=== PATIENT | female | born 1945 | race Caucasian/White ===

== ENCOUNTER → 2016-09-08 | Outpatient (CLI) | payer MEDICARE, BC ==
--- NOTE | 2016-09-09 13:39 | MM ---
Reason for exam: screening (asymptomatic). Last mammogram was performed 2 years and 4 months ago. History: Patient is postmenopausal. Family history of breast cancer in maternal aunt. Stereotactic core biopsy of the right breast, June 19, 2000. Core biopsy of the right breast. Took hormonal contraceptives for 20 years. Physical Findings: A clinical breast exam by your physician is recommended on an annual basis and results should be correlated with mammographic findings. MG 3D Screening Mammo W/Cad Bilateral CC and MLO view(s) were taken. Prior study comparison: May 17, 2014, bilateral MG screening mammo w CAD. March 22, 2013, bilateral digital screening mammo w/CAD. January 09, 2012, bilateral digital screening mammo w/CAD. May 15, 2010, bilateral digital screening mammogram. There are scattered fibroglandular densities. Previous mammotome biopsy within the right breast. No significant changes when compared with prior studies. ASSESSMENT: Negative, BI-RAD 1 RECOMMENDATION: Routine screening mammogram of both breasts in 1 year.
== END | disposition home or self-care (01) ==
LOC: RADMAMWWP 08:21
PROVIDERS: ATTEND Internal Medicine Geriatric Medicine
DX: Z12.31 Encounter for screening mammogram for malignant neoplasm of breast (principal)
CPT/HCPCS: 77063; G0202

== ENCOUNTER → 2016-10-28 | Outpatient (CLI) | payer MEDICARE, BC ==
[~2016-10-28] MED LIST: ATROPINE SULFATE 0.1 MG/ML 10ML SYRINGE ONE; DOBUTamine DRIP for NUC MED 500 MG in DEXTROSE/WATER 1 250ML.BAG IV ONE
--- NOTE | 2016-10-28 10:34 | XR ---
EXAMINATION TYPE: XR chest 2V DATE OF EXAM: 10/28/2016 10:30 AM COMPARISON: NONE TECHNIQUE: PA and lateral views submitted. HISTORY: Shortness of breath FINDINGS: The lungs are clear and there is no pneumothorax, pleural effusion, or focal pneumonia. There is a h iatal hernia. No overt failure. IMPRESSION: 1. No acute process.
--- NOTE | 2016-10-28 12:20 | ECHOS ---
DATE OF SERVICE: 10/28/2016 AGE: 70Y SEX: F HT: 63" WT: 215 lbs. Protocol Conrado: Others: Dobutamine Stress Echo Stage: 4 Dur. of Exercise: 11:00 *Heart Rate Blood Pressure *Rest: 74 Rest: 123/59 * *Max. Achieved: 142 Maximum BP: 150/46 85% PMHR: 128 100% PMHR: 150 *METS: - INDICATIONS: Chest pain, shortness of breath. MEDICATIONS: Meloxicam, Norvasc, iron, calcium fish oil, Lasix. A dobutamine stress echocardiographic study was performed. Peak heart rate of 142 was achieved. Maximum blood pressure of 150/46 mmHg was noted. EKG shows normal sinus rhythm with normal NV interval and QRS duration and normal ST-T waves. During dobutamine infusion about [address] segment depression was noted. Complained of symptoms of shortness of breath during dobutamine infusion. The baseline echocardiographic images reveal a normal left ventricular chamber size with evidence of left ventricular hypertrophy and normal left ventricular systolic function. There is a normal increase in the wall thickness and contractility noted without any wall motion abnormality. FINAL IMPRESSION: 1. This dobutamine stress echocardiographic study does not show any wall motion abnormality to suggest stress-induced ischemia. 2. EKG portion of the stress test shows ST segment depression which could be secondary to left ventricular hypertrophy and/on ischemia. Clinical correlation is suggested.
== END | disposition home or self-care (01) ==
LOC: RADNMMAIN 08:47
PROVIDERS: ATTEND Internal Medicine Geriatric Medicine
DX: R07.9 Chest pain, unspecified (principal); R06.02 Shortness of breath
CPT/HCPCS: 93017; 93350; 71020; J1250

== ENCOUNTER 2016-12-26 07:00 | Day surgery (SDC) | payer MEDICARE, BC ==
[2016-12-23 15:56] VITALS: BMI 27.5
[~2016-12-26 07:00] MED LIST changes: -ATROPINE SULFATE 0.1 MG/ML 10ML SYRINGE ONE; -DOBUTamine DRIP for NUC MED 500 MG in DEXTROSE/WATER 1 250ML.BAG IV ONE; +LACTATED RINGERS 1,000 ML IV SCH
[2016-12-26 07:12] VITALS: TEMP 98.1
[2016-12-26] MEDS ORDERED: LACTATED RINGERS 1,000 ML IV ONE (07:12)
[2016-12-26] MEDS ORDERED: LIDOCAINE 1% 20 ML VIAL (10MG/ML) FOR IV START INTRADERMA ONE (07:13)
[2016-12-26 07:22] LABS: Glucose,Whole Blood 112 mg/dL (75-99)
[2016-12-26] MEDS ORDERED: PROPOFOL 10 MG/ML 20 ML VIAL IV ONE (07:36)
--- NOTE | 2016-12-26 07:59 | P.PCN ---
Date of Procedure: 12/26/16 Preoperative Diagnosis: Postoperative Diagnosis: Procedure(s) Performed: BRIEF HISTORY: Patient is a 71-year-old pleasant white female, scheduled for an elective colonoscopy as a part of evaluation of iron deficiency anemia. She denies any GI symptoms. The patient has rectal bleeding. PROCEDURE PERFORMED: Colonoscopy. PREOPERATIVE DIAGNOSIS: Iron deficiency anemia. IV sedation per Anesthesia. PROCEDURE: After informed consent was obtained, the patient, was brought into the endoscopy unit. IV sedation was administered by Anesthesia under continuous monitoring. Digital rectal examination was normal. Initially the Olympus CF- 160 flexible video colonoscope was then inserted in the rectum, gradually advanced into the cecum without any difficulty. Careful examination was performed as the scope was gradually being withdrawn. Ileocecal valve and the appendiceal orifice were visualized and appeared normal. Prep was excellent. Mucosa of the cecum, ascending colon, transverse colon, descending colon, sigmoid colon, and rectum appeared normal. Retroflexion was performed in the rectum and no lesions were seen. The patient tolerated the procedure well. IMPRESSION: Normal-appearing colon from rectum to cecum with no evidence of colorectal neoplasia. RECOMMENDATIONS: Findings of this examination were discussed with the patient as well as a family. She can have a repeat screening colonoscopy in 10. Implants: Indications for Procedure: Operative Findings: Description of Procedure:
[2016-12-26 08:25] VITALS: BP 137/61; PULSE 64; RESP 18
== END 2016-12-26 08:43 | disposition home or self-care (01) ==
LOC: ORWHC2ENDO 07:00
PROVIDERS: ATTEND Internal Medicine Gastroenterology
DX: I10 Essential (primary) hypertension (principal); E11.9 Type 2 diabetes mellitus without complications; Z79.84 Long term (current) use of oral hypoglycemic drugs; Z79.899 Other long term (current) drug therapy; Z88.5 Allergy status to narcotic agent
CPT/HCPCS: 45378; J2704

== ENCOUNTER → 2017-10-12 | Outpatient (CLI) | payer MEDICARE, BC ==
--- NOTE | 2017-10-13 09:07 | MM ---
Reason for exam: screening (asymptomatic). Last mammogram was performed 1 year and 1 month ago. History: Patient is postmenopausal. Family history of breast cancer in maternal aunt. Stereotactic core biopsy of the right breast, June 19, 2000. Core biopsy of the right breast. Took hormonal contraceptives for 20 years. Physical Findings: A clinical breast exam by your physician is recommended on an annual basis and results should be correlated with mammographic findings. MG 3D Screening Mammo W/Cad Bilateral CC and MLO view(s) were taken. Prior study comparison: September 08, 2016, bilateral MG 3d screening mammo w/cad. May 17, 2014, bilateral MG screening mammo w CAD. The breast tissue is heterogeneously dense. This may lower the sensitivity of mammography. Stable benign calcifications. There is chronic nodularity bilaterally. There is no dominant lesion. No significant changes when compared with prior studies. ASSESSMENT: Benign, BI-RAD 2 RECOMMENDATION: Routine screening mammogram of both breasts in 1 year.
--- NOTE | 2017-10-13 16:31 | BD ---
EXAMINATION TYPE: MG DEXA axial skeleton. DATE OF EXAM: 10/12/2017 COMPARISON: 07.19.2014 CLINICAL HISTORY: 71 YR OLD FEMALE.....ICD-10 CODE: M81.0 OSTEOPOROSIS Height: 61 Weight: 188 FRAX RISK QUESTIONS: Alcohol (3 or more units per day): NO Family History (Parent hip fracture): NO Glucocorticoids (More than 3mos): NO (Ex: prednisone, prednisolone, methylprednisolone, dexamethasone, and hydrocortisone). History of Fracture in Adulthood: NO Secondary Osteoporosis: NO 1. Type 1 Diabetes: NO 2. Hyperthyroidism: NO 3. Menopause before 45: NO 4. Malnutrition: NO 5. Chronic liver disease: NO Rheumatoid Arthritis: NO Current Tobacco Use: NO RISK FACTORS HISTORY OF: Surgery to RT HIP.... When: 2014 Family History of Osteoporosis: UNKNOWN Active: NO....CANNOT WALK WITHOUT HELP/AID Diet low in dairy products/other sources of calcium: NO Postmenopausal woman: YES, TOTAL HYSTERECTOMY AT AGE 63 Take estrogen and/or progesterone medications: TOOK BCP IN PAST FOR 20 YRS Lost more than 2 inches in height since high school: YES Frequent falls: PT UNSTEADY Hyperparathyroidism: NO Adrenal Insufficiency: NO MEDICATIONS: Additional Medications: MELOXICAM, FOR INFLAMMATION, BP MEDS,DIABETIC II,CALCIUM WITH D Additional History: THR AND TKR, OSTEOARTHRITIS, HYPERTENSION, DIABETIC EXAM MEASUREMENTS: Bone mineral densitometry was performed using the [employer] System. Bone mineral density as measured about the Lumbar spine is: ----- L1-L4(G/cm2): 1.255 T Score Values are as follows: ----- L1: -0.1 ----- L2: -0.2 ----- L3: 1.1 ----- L4: 1.2 ----- L1-L4: 0.6 Bone mineral density has: Increased 6.5% since study of: 07.19.2014 Bone mineral density about the L hip (g/cm2): 1.021 T Score values are as follows: -----L Neck: -0.8 -----L Total: 0.1 Bone mineral density has: Decreased -5.8% since study of: 07.19.2014 FRAX%S: THERE IS A 8.0% CHANCE OF A MAJOR OSTEOPOROTIC FX AND A 0.8% FOR A HIP FX.....PROBABILITY OF FX IN 10 YRS TIME IMPRESSION: Normal (Values between +1 and -1 indicate normal bone mass). Consider repeating this study in 5 year s or sooner if there is some new clinical indication. NOTE: T-SCORE=SD OF THE YOUNG ADULT MEAN.
== END | disposition home or self-care (01) ==
LOC: RADMAMWWP 07:48
PROVIDERS: ATTEND Internal Medicine Geriatric Medicine
DX: Z12.31 Encounter for screening mammogram for malignant neoplasm of breast (principal); M81.0 Age-related osteoporosis without current pathological fracture
CPT/HCPCS: 77063; 77067; 77080

== ENCOUNTER 2018-02-25 05:48 | Day surgery (SDC) | payer MEDICARE, BC ==
--- NOTE | 2018-02-22 09:24 | HP ---
HISTORY AND PHYSICAL This is a 72-year-old female who presents with a history of a perineal bulge that has been increasing over the past several years. She also reports urinary incontinence. She was evaluated by Dr. Hurst and his opinion was that patient was not in need of a sling procedure. She is; however, requesting repair of the enlarging cystocele. She denies vaginal bleeding or dyspareunia. There are no other bladder or rectal issues. PAST MEDICAL HISTORY: Significant for type 2 diabetes, essential hypertension, osteoarthritis, and rheumatoid arthritis. PAST SURGICAL HISTORY: Significant for rectocele repair 2008, AMAYA BSO in the past for benign disease. She has a history of hip replacement, knee surgery, tubal ligation, tonsillectomy and adenoidectomy, and appendectomy. FAMILY HISTORY: Significant for hepatitis in the patient's mother, myocardial infarction of the patient's father. ALLERGIES: Include codeine to which reports an upset stomach and Rocephin to which reports a rash. CURRENT MEDICATIONS: Calcium with vitamin D daily, fish oil daily, hydrochlorothiazide 25 mg daily, meloxicam 7.5 mg twice daily, multivitamin daily, Norvasc 50 mg daily. SOCIAL HISTORY: Patient is retired from [employer], she has never been a smoker. She is . She denies alcohol or drug use. REVIEW OF SYSTEMS: Is otherwise negative except as found in the HPI. EXAM: This is a pleasant white female who is 5 foot 4 inches, 178 pounds, BMI 30, blood pressure 132/70, patient is afebrile. HEENT examination reveals no thyromegaly, no cervical lymphadenopathy. CHEST: Clear to auscultation in all brooks anteriorly and posteriorly. ABDOMEN: Soft, moderately obese, no organosplenomegaly, no tenderness, active bowel sounds are noted. There is no CVA tenderness noted. Breasts are bilaterally symmetric to inspection with no skin dimpling, nipple discharge, axillary adenopathy or discernible lesions or masses. Extremities reveal no edema, there are good peripheral pulses noted throughout. On pelvic exam, external genitalia is reasonably well estrogenized. There is a grade 2 6-3 cystocele noted, otherwise good vaginal vault suspension and no rectocele. Rectal exam reveals fit capital IP negative stool, good sphincter tone, no hemorrhoids. Neurologic and psychiatric status is normal, patient is grossly oriented to person, place, and time, normal mood and appropriate affect. IMPRESSION: Increasingly symptomatic grade 3 cystocele, patient requesting surgical repair. PLAN: We will proceed with cystocele repair at [facility]. The risks of surgery have been reviewed in detail including the risk of bleeding, infection, perforation or damage to bowel, bladder, ureters, or indeed any organs. The risk of anesthesia including aspiration, nerve damage, or even have all been discussed. Second opinion is offered and declined. As noted above, assessment per Dr. Hurst is consistent with no need for sling at this time. Completion of this note and standard neck is not in. I do not have attended a better date is 1945 thank you very much end dictation have a good. MMODL / IJN: [id number] /
[2018-02-22 10:49] VITALS: BMI 30.9
[~2018-02-25 05:48] MED LIST changes: +CLINDAMYCIN 900 MG in DEXTROSE 5% IN WATER 50 ML IVPB ONE; -LACTATED RINGERS 1,000 ML IV SCH
[2018-02-25] MEDS ORDERED: ONDANSETRON 4 MG/2 ML VIAL IVP ONE (05:57)
[2018-02-25] MEDS ORDERED: fentaNYL (PF) 50 MCG/ML 2 ML AMP IV PRN (05:57)
[2018-02-25] MEDS ORDERED: DEXAMETHASONE SOD PHOSPHATE 10 MG/ML 1 ML VIAL IV ONE (05:57)
[2018-02-25] MEDS ORDERED: MIDAZOLAM 2 MG/2 ML VIAL IV PRN (05:57)
[2018-02-25] MEDS ORDERED: LIDOCAINE 1% 20 ML VIAL (10MG/ML) FOR IV START INTRADERMA PRN (05:57)
[2018-02-25] MEDS ORDERED: LACTATED RINGERS 1,000 ML IV SCH (06:00)
[2018-02-25] MEDS ORDERED: LIDOCAINE 1% INJ 10MG/ML (20 ML MDV) ONE (06:02)
[2018-02-25] MEDS ORDERED: LACTATED RINGERS 1,000 ML IV ONE (06:13)
[2018-02-25 06:29] LABS: Glucose,Whole Blood 96 mg/dL (75-99)
[2018-02-25] MEDS ORDERED: diphenhydrAMINE 50 MG/ML 1 ML VIAL ONE (07:24)
[2018-02-25] MEDS ORDERED: fentaNYL (PF) 50 MCG/ML 2 ML AMP ONE (07:24)
[2018-02-25] MEDS ORDERED: MORPHINE SULFATE (PF) 0.3 MG/0.3 ML SYR ONE (07:24)
[2018-02-25] MEDS ORDERED: MIDAZOLAM 2 MG/2 ML VIAL ONE (07:24)
[2018-02-25] MEDS ORDERED: VASOPRESSIN 20 UNIT/ML 1 ML VIAL SQ ONE (07:48)
[2018-02-25] MEDS ORDERED: BACITRACIN 500 UNIT/GM OINT 28.4 GM TUBE TOPICAL ONE (07:49)
[2018-02-25] MEDS ORDERED: IBUPROFEN 600 MG TAB PO PRN (08:17)
[2018-02-25] MEDS ORDERED: KETOROLAC 30 MG/ML 1 ML VIAL IVP PRN (08:17)
[2018-02-25] MEDS ORDERED: ONDANSETRON 4 MG/2 ML VIAL IVP PRN (08:17)
--- NOTE | 2018-02-25 08:17 | P.OP ---
Date of Procedure: 02/25/18 Preoperative Diagnosis: Symptomatic grade 3 cystocele Postoperative Diagnosis: Grade 3-4 cystocele, good vaginal vault suspension Procedure(s) Performed: Anterior colporrhaphy Anesthesia: spinal Surgeon: Sienna Contreras Data Integration Developer #1: Ruyd Hernandez Estimated Blood Loss (ml): 25 IV fluids (ml): 500 Urine output (ml): 200 Pathology: none sent Condition: stable Disposition: PACU Description of Procedure: Patient is brought to the operating suite where a spinal with Duramorph is given. She is placed in the dorsolithotomy position. The appropriate timeout was performed. Antibiotics are given. The vagina and perineal bodies are all prepped and draped in the usual sterile fashion. Bladder is drained for approximately 200 mL of clear yellow urine. Weighted speculum was placed into the vagina and the uterosacral cardinal ligament dimples are identified and grasped with Allis clamps. The anterior vaginal wall is then injected with dilute Pitressin, 10 mL total. Scalpel is used to incise the mucosa between the 2 Allis clamps. Metzenbaum scissors are used to develop the plane and open the anterior vaginal wall to the apex of the defect. A sponge rolled finger is used to sweep the overlying mucosa from the underlying fascial plane. Perez catheter is again replaced. 2-0 Vicryl sutures used in an interrupted fashion to bring the lateral edges of the fascia together in the midline, completely reducing the cystocele. Metzenbaum scissors are used to trim the redundant mucosa. 2-0 Vicryl now is used in a running locking stitch to close the anterior vaginal wall, cystocele been completely reduced. Perez catheter is noted to be draining clear urine. The vagina is packed with iodoform gauze with basic tracing. Total estimated blood loss 25 mL's. All sponge needle and enhancement counts are correct at the end of the procedure. Patient is brought back to recovery room in excellent condition with stable vital signs including 99% O2 sat, 66 pulse, blood pressure 124/69.
[2018-02-25] MEDS: diphenhydrAMINE 50 MG/ML 1 ML VIAL IVP PRN ×2 (11:47→23:39)
[2018-02-25 20:51] VITALS: RESP 16
[2018-02-26 08:02] VITALS: BP 96/52; PULSE 56; TEMP 97.9
--- NOTE | 2018-02-26 09:59 | P.DS ---
Providers Date of admission: 02/25/18 Expected date of discharge: 02/26/18 Attending physician: Sienna Contreras Primary care physician: [facility] Hospital Course: This is a 72-year-old white female who presented with increasingly symptomatic grade 3 cystocele. Patient was seen and evaluated by Dr. Hurst prior to surgery, his impression was that a sling procedure was not necessary. Please see my dictated history and physical for details. Patient was admitted and underwent and anterior colporrhaphy under my care. She did very well intraoperatively, good vaginal cuff support was noted. No obvious rectocele. Vagina was packed with iodoform gauze and Perez catheter was placed. Please see my dictated operative note for details. This morning the patient is doing well. Perez catheter has been removed. She had a thorough void, and a post void residual of approximately 13 mL's. There is no vaginal bleeding. The abdomen is soft and nontender. There is no CVA tenderness. Extremities reveal no edema. The chest is clear in all brooks. Patient is being discharged home this morning in very good condition. She will follow-up with me in the office in 2 weeks. I have reminded her no intercourse , no heavy lifting, nothing in the vagina. She will use [id number] Naprosyn as needed for pain. She will call me with any fevers shakes or chills , foul smelling or bloody vaginal drainage, with any pain not alleviated by over -the-counter products, or indeed with any concerns. Patient Condition at Discharge: Good Plan - Discharge Summary Discharge Rx Participant: No New Discharge Prescriptions: No Action metFORMIN HCL 500 mg PO BID PRN PRN Reason: high blood sugar amLODIPine BESYLATE [Amlodipine Besylate] 5 mg PO QAM Fish Oil/Dha/Epa [Fish Oil 1,200 mg Fish Oil] 1 cap PO MOWEFR Multivitamins, Thera [Multivitamin (formulary)] 1 tab PO DAILY Meloxicam 7.5 mg PO BID Hydrochlorothiazide 25 mg PO DAILY Calcium Carbonate/Vitamin D3 [Calcium 500-Vit D3 600 Tablet] 1 each PO DAILY Discharge Medication List Fish Oil/Dha/Epa [Fish Oil 1,200 mg Fish Oil] 1 cap PO MOWEFR 06/19/14 [History] amLODIPine BESYLATE [Amlodipine Besylate] 5 mg PO QAM 01/12/15 [History] metFORMIN HCL 500 mg PO BID PRN 06/19/14 [History] Calcium Carbonate/Vitamin D3 [Calcium 500-Vit D3 600 Tablet] 1 each PO DAILY [History] Hydrochlorothiazide 25 mg PO DAILY 02/22/18 [History] Meloxicam 7.5 mg PO BID 02/22/18 [History] Multivitamins, Thera [Multivitamin (formulary)] 1 tab PO DAILY 02/22/18 [History ] Follow up Appointment(s)/Referral(s): Sienna Contreras MD [STAFF PHYSICIAN] - 2 Weeks () Discharge Disposition: HOME SELF-CARE
== END 2018-02-26 10:45 | disposition home or self-care (01) ==
LOC: OR 05:48 → 4FBP 08:13 → OR 02-26 10:45
PROVIDERS: ATTEND Obstetrics & Gynecology
DX: N81.10 Cystocele, unspecified (principal); E11.9 Type 2 diabetes mellitus without complications; I10 Essential (primary) hypertension; M19.90 Unspecified osteoarthritis, unspecified site; M06.9 Rheumatoid arthritis, unspecified; Z90.710 Acquired absence of both cervix and uterus; Z98.51 Tubal ligation status; Z82.49 Family history of ischemic heart disease and other diseases of the circulatory system; Z88.1 Allergy status to other antibiotic agents; Z79.1 Long term (current) use of non-steroidal anti-inflammatories (NSAID); Z79.899 Other long term (current) drug therapy; Z96.641 Presence of right artificial hip joint; Z96.651 Presence of right artificial knee joint; Z88.5 Allergy status to narcotic agent; Z79.84 Long term (current) use of oral hypoglycemic drugs
CPT/HCPCS: 57240; J2250; J1200; J1100; J2405; J2274; J3010

== ENCOUNTER → 2018-10-18 | Outpatient (CLI) | payer MEDICARE, BC ==
--- NOTE | 2018-10-19 14:31 | MM ---
Reason for exam: screening (asymptomatic). Last mammogram was performed 1 year ago. History: Patient is postmenopausal. Family history of breast cancer in maternal aunt. Stereotactic core biopsy of the right breast, June 19, 2000. Core biopsy of the right breast. Took hormonal contraceptives for 20 years. Physical Findings: A clinical breast exam by your physician is recommended on an annual basis and results should be correlated with mammographic findings. MG 3D Screening Mammo W/Cad Bilateral CC and MLO view(s) were taken. Prior study comparison: October 12, 2017, bilateral MG 3d screening mammo w/cad. September 08, 2016, bilateral MG 3d screening mammo w/cad. The breast tissue is heterogeneously dense. This may lower the sensitivity of mammography. Benign appearing bilateral calcifications similar to prior exams. No suspicious abnormality. No significant changes when compared with prior studies. ASSESSMENT: Benign, BI-RAD 2 RECOMMENDATION: Routine screening mammogram of both breasts in 1 year.
== END | disposition home or self-care (01) ==
LOC: RADMAMWWP 09:03
PROVIDERS: ATTEND Internal Medicine Geriatric Medicine
DX: Z12.31 Encounter for screening mammogram for malignant neoplasm of breast (principal)
CPT/HCPCS: 77063; 77067

== ENCOUNTER 2019-12-08 09:26 | Day surgery (SDC) | payer MEDICARE, BC ==
[2019-12-06 17:14] VITALS: BMI 31.8
[~2019-12-08 09:26] MED LIST changes: -CLINDAMYCIN 900 MG in DEXTROSE 5% IN WATER 50 ML IVPB ONE; +LACTATED RINGERS 1,000 ML IV SCH; +LIDOCAINE 1% (10MG/ML) FOR IV START INTRADERMA PRN
[2019-12-08 09:56] LABS: Glucose,Whole Blood 118 mg/dL (75-99)
[2019-12-08 09:59] VITALS: TEMP 97.4
[2019-12-08] MEDS ORDERED: PROPOFOL 10 MG/ML 20 ML VIAL IV ONE (10:29)
[2019-12-08] MEDS ORDERED: LIDOCAINE 1% INJ 10MG/ML (20 ML MDV) ONE (10:29)
--- NOTE | 2019-12-08 10:40 | P.PCN ---
Date of Procedure: 12/08/19 Procedure(s) Performed: BRIEF HISTORY: Patient is a 74-year-old, pleasant, female scheduled for endoscopy evaluation of iron deficiency anemia. She denies any GI symptoms. Her last colonoscopy was 3 years ago that was unremarkable.. PROCEDURE PERFORMED: Esophagogastroduodenoscopy with biopsy. PREOPERATIVE DIAGNOSIS: Iron deficiency anemia and a negative colonoscopy 3 years. IV sedation per anesthesia. PROCEDURE: After informed consent was obtained, the patient was brought into the endoscopy unit. IV sedation was administered by Anesthesia under continuous monitoring. Initially the Olympus GIF-140 video endoscope was inserted into the mouth. Esophagus intubated without any difficulty. It was gradually advanced into the stomach and duodenum and carefully examined. The bulb and the second part of the duodenum appeared normal. The scope at this time was withdrawn to the stomach, adequately insufflated with air, and upon careful examination, mucosa of the antrum had scattered erosions and a 5 mm linear ulcer with no active bleeding that was biopsied. Rest of the, body, cardia and the fundus appeared normal. The scope was then withdrawn into the esophagus. Moderate size hiatal hernia noted. There are scattered Lui erosions noted at the diaphragmatic impression was a hiatal hernia with no active bleeding. The GE junction was located at 30 cm from the incisors. The esophagus appeared normal. There were no erosions or ulcerations seen and the patient tolerated the procedure well. IMPRESSION: 1. 5 mm linear antral ulcer with no active bleeding status post biopsy. 2. Moderate size hiatal hernia with Lui erosions at the diaphragmatic impression. RECOMMENDATIONS: The findings of this examination were discussed with the patient as well as a family. She will be started on Prilosec 20 mg daily She was advised to continue with iron supplements. Avoid NSAIDs including meloxicam. Follow with the biopsy results. Monitor CBC on a frequent basis..
[2019-12-08 11:28] VITALS: BP 122/72; PULSE 76; RESP 16
== END 2019-12-08 11:25 | disposition home or self-care (01) ==
LOC: ORWHC2ENDO 09:26
PROVIDERS: ATTEND Internal Medicine Gastroenterology
DX: K31.9 Disease of stomach and duodenum, unspecified (principal); K25.9 Gastric ulcer, unspecified as acute or chronic, without hemorrhage or perforation; K22.10 Ulcer of esophagus without bleeding; K44.9 Diaphragmatic hernia without obstruction or gangrene; D50.9 Iron deficiency anemia, unspecified; I10 Essential (primary) hypertension; E78.5 Hyperlipidemia, unspecified; K08.89 Other specified disorders of teeth and supporting structures; Z97.2 Presence of dental prosthetic device (complete) (partial); E11.9 Type 2 diabetes mellitus without complications; M06.9 Rheumatoid arthritis, unspecified; Z79.82 Long term (current) use of aspirin; Z79.899 Other long term (current) drug therapy; Z88.1 Allergy status to other antibiotic agents; Z88.5 Allergy status to narcotic agent; Z98.890 Other specified postprocedural states; Z90.710 Acquired absence of both cervix and uterus; Z90.49 Acquired absence of other specified parts of digestive tract; Z90.89 Acquired absence of other organs
CPT/HCPCS: 88305; 43239; J2001; J2704

== ENCOUNTER → 2019-12-29 | Outpatient (CLI) | payer MEDICARE, BC ==
[2019-12-29 09:31] LABS: Anisocytosis Marked; Basophils % (A) 1 %; Eosinophils # (A) 0.1 k/uL (0-0.7); Eosinophils % (A) 4 %; Hypochromasia Marked; Lymphocytes # (A) 0.9 k/uL (1.0-4.8); Lymphocytes % (A) 27 %; MCH 24.9 pg (25.0-35.0); MCHC 28.8 g/dL (31.0-37.0); MCV 86.3 fL (80.0-100.0); Macrocytosis Slight; Mean Platelet Volume 7.6; Microcytosis Slight; Monocytes # (A) 0.3 k/uL (0-1.0); Monocytes % (A) 8 %; Neutrophils # (A) 1.8 k/uL (1.3-7.7); Neutrophils % (A) 58 %; Platelet Count 234 k/uL (150-450); RBC 4.41 m/uL (3.80-5.40); WBC 3.2 k/uL (3.8-10.6)
[2019-12-29 10:15] LABS: RDW 27.1 % (11.5-15.5)
[2019-12-29 11:11] LABS: Poikilocytosis (M) Present
[2019-12-29 17:15] LABS: African American GFR (CKD) 84.2 (60.0-200.0); Albumin 4.3 g/dL (3.80-4.90); Albumin/Globulin Ratio 1.72 (1.60-3.17); BUN/Creat Ratio 17.5 Ratio (12.00-20.00); Calcium 9.6 mg/dL (8.7-10.3); Chol/HDL Ratio 2.63; Globulin 2.5 g/dL (1.6-3.3); LDL Cholesterol,Calculated 62.8 mg/dL (0.0-131.0); Non-African American GFR(CKD) 72.6 (60.0-200.0); Potassium 4.3 mmol/L (3.5-5.5); Total Bilirubin 0.4 mg/dL (0.2-1.2); Total Protein 6.8 g/dL (6.2-8.2); VLDL Calculation 20.2 mg/dL (5.00-40.00)
[2019-12-29 20:20] LABS: Hemoglobin A1C 4.4 % (4.0-6.0)
== END | disposition home or self-care (01) ==
LOC: LABWHC1 08:08
PROVIDERS: ATTEND Internal Medicine Geriatric Medicine
DX: E78.2 Mixed hyperlipidemia (principal); E11.9 Type 2 diabetes mellitus without complications; I10 Essential (primary) hypertension
CPT/HCPCS: 36415; 80053; 80061; 83036; 84443; 85025

== ENCOUNTER → 2020-03-02 | Outpatient (CLI) | payer MEDICARE, BC ==
[2020-03-02 11:28] LABS: Anisocytosis Slight; Basophils % (A) 0 %; Eosinophils # (A) 0.1 k/uL (0-0.7); Eosinophils % (A) 3 %; HGB 13.1 gm/dL (11.4-16.0); Lymphocytes # (A) 1.3 k/uL (1.0-4.8); Lymphocytes % (A) 25 %; MCHC 32.8 g/dL (31.0-37.0); MCV 91.6 fL (80.0-100.0); Mean Platelet Volume 7.5; Microcytosis Slight; Monocytes # (A) 0.4 k/uL (0-1.0); Monocytes % (A) 7 %; Neutrophils # (A) 3.2 k/uL (1.3-7.7); Neutrophils % (A) 63 %; Platelet Count 223 k/uL (150-450); RBC 4.37 m/uL (3.80-5.40); RDW 18.9 % (11.5-15.5); WBC 5.2 k/uL (3.8-10.6)
--- NOTE | 2020-03-05 10:34 | MM ---
Reason for exam: screening (asymptomatic). Last mammogram was performed 1 year and 4 months ago. History: Patient is postmenopausal. Family history of breast cancer in maternal aunt. Stereotactic core biopsy of the right breast, June 19, 2000. Core biopsy of the right breast. Took hormonal contraceptives for 20 years. Physical Findings: A clinical breast exam by your physician is recommended on an annual basis and results should be correlated with mammographic findings. MG 3D Screening Mammo W/Cad Bilateral CC and MLO view(s) were taken. Prior study comparison: October 18, 2018, bilateral MG 3d screening mammo w/cad. October 12, 2017, bilateral MG 3d screening mammo w/cad. The breast tissue is heterogeneously dense. This may lower the sensitivity of mammography. There are benign appearing diffuse, regional, dystrophic, round calcifications bilaterally. There is chronic nodularity in the left breast. Asymmetric breast tissue right medial breast, stable. There is no discrete abnormality. ASSESSMENT: Benign, BI-RAD 2 RECOMMENDATION: Routine screening mammogram of both breasts in 1 year.
== END | disposition home or self-care (01) ==
LOC: RADMAMWWP 10:17
PROVIDERS: ATTEND Internal Medicine Geriatric Medicine
DX: Z12.31 Encounter for screening mammogram for malignant neoplasm of breast (principal); D50.9 Iron deficiency anemia, unspecified
CPT/HCPCS: 36415; 77063; 77067; 85025

== ENCOUNTER 2021-02-19 08:43 | Day surgery (SDC) | payer MEDICARE, BC ==
[2021-02-14 14:39] VITALS: BMI 32.8
--- NOTE | 2021-02-18 10:36 | HP ---
HISTORY AND PHYSICAL CHIEF COMPLAINT: Left knee pain. HISTORY OF PRESENT ILLNESS: The patient is a 75-year-old retired female who presents with progressive left knee pain for the past several years, worsening recently. She has pain with weightbearing activities. She notes that it significantly limits her. She does use a walker. She has tried injections and medications, with only partial temporary relief. PAST MEDICAL HISTORY: Significant for type 2 diabetes, hypertension and arthritis. PAST SURGICAL HISTORY: Significant for right total knee arthroplasty, previous right total hip arthroplasty with subsequent revision, bilateral oophorectomy, appendectomy. CURRENT MEDICATIONS: Iron, amlodipine, aspirin, pantoprazole, Plavix. ALLERGIES: SHE DENIES DRUG ALLERGIES. FAMILY HISTORY: Significant for cancer and heart disease. SOCIAL HISTORY: Negative for current tobacco or alcohol use. REVIEW OF SYSTEMS: Sixteen-point review of systems is otherwise reviewed and noncontributory. PHYSICAL EXAMINATION: On examination, patient is approximately 5 feet 3 inches, 190 pounds of endomorphic habitus. HEENT exam is nonfocal. Neck is supple. She has painless passive motion of her left hip. Straight-leg raise is negative. Active motion of the left knee: Minus 16 to 95 degrees of flexion. She has a moderate effusion. She is tender about the medial joint line. Collaterals are stable, Yoni negative, Tamiko's equivocal. She has genu varum alignment. Her distal neurovascular exam appears intact in the left lower extremity. Weightbearing, notch, lateral and Merchant views of the left knee obtained in the office show severe medial compartment osteoarthrosis with [id number]-[id number] changes in addition to subchondral sclerosis. IMPRESSION: 1. Left knee severe medial and patellofemoral compartment osteoarthrosis. 2. History of coronary artery disease, on anticoagulation. RECOMMENDATIONS: I talked to the patient at length regarding her condition along with treatment options. At this point she is quite symptomatic and limited because of pain related to her osteoarthrosis despite previous conservative measures. After thorough discussion, she opted to proceed with surgery. We will plan to proceed with left total knee arthroplasty. We will reinstitute anticoagulation postoperatively. Risks and benefits were discussed at length in layman's terms. MMODL / IJN: [id number] /
[~2021-02-19 08:43] MED LIST changes: +ACETAMINOPHEN TAB 500 MG TAB PO PRN; +DEXAMETHASONE SOD PHOSPHATE 4 MG/ML 1 ML VIAL IV ONE; +HYDROmorphone 0.5 MG/0.5 ML SYRINGE IVP PRN; -LACTATED RINGERS 1,000 ML IV SCH; +MELOXICAM 7.5 MG TAB PO PRN; +MIDAZOLAM 2 MG/2 ML VIAL IV PRN; +ONDANSETRON 4 MG/2 ML VIAL IVP ONE; +ROPIVACAINE/EPI/CLONIDINE/KET 50 ML SYRINGE MISCELLANE PRN; +TRANEXAMIC ACID 1,000 MG in SODIUM CHLORIDE 0.9% 100 ML IVPB PRN; +fentaNYL (PF) 50 MCG/ML 2 ML AMP IVP PRN
[2021-02-19 09:32] LABS: Glucose,Whole Blood 111 mg/dL (75-99)
[2021-02-19] MEDS: LACTATED RINGERS 1,000 ML IV SCH ×2 (09:35→16:58)
--- NOTE | 2021-02-19 10:22 | P.ANPRN ---
Procedure Note - Anesthesia - Nerve Block Performed Left Adductor Canal Infusion Time Out Performed: Yes Date of Procedure: 02/19/21 Procedure Start Time: 09:52 Procedure Stop Time: 10:05 Location of Patient: PreOp Indication: Requested by Surgeon Specifically requested for management of pain by DrKeith: Juan Manuel Renner Sedation Type: Sedate with meaningful contact maintained Preparation: Sterile Prep, Sterile Dressing Position: Supine Catheter: Indwelling Needle Types: Pajunk Needle Gauge: 18 Ultrasound used to visualize needle placement: Yes Ultrasound used to observe medication spread: Yes Injectate: 0.5% Ropivacaine (see comment for volume) (15 ml plus 5 ml NS) Blood Aspirated: No Pain Paresthesia on Injection Noted: No Resistance on Injection: Normal Image Stored and Saved: Yes Events: Uneventful and Well Tolerated
[2021-02-19] MEDS ORDERED: ROPIVACAINE 0.2%-NS ON-Q PUMP 1,090 MG, EMPTY PAIN BALL 1 EACH MISCELLANE PRN (10:23)
--- NOTE | 2021-02-19 10:23 | P.ANPRN ---
Procedure Note - Anesthesia - Nerve Block Performed Left iPack Single Time Out Performed: Yes Date of Procedure: 02/19/21 Procedure Start Time: 10:07 Procedure Stop Time: 10:12 Location of Patient: PreOp Indication: Requested by Surgeon Specifically requested for management of pain by DrKeith: Juan Manuel Renner Sedation Type: Sedate with meaningful contact maintained Preparation: Sterile Prep Position: Right Lateral Needle Types: Pajunk Needle Gauge: 21 Ultrasound used to visualize needle placement: Yes Ultrasound used to observe medication spread: Yes Injectate: 0.5% Ropivacaine (see comment for volume) (15 ml plus 5 ml NS) Blood Aspirated: No Pain Paresthesia on Injection Noted: No Resistance on Injection: Normal Image Stored and Saved: Yes Events: Uneventful and Well Tolerated
[2021-02-19] MEDS ORDERED: SODIUM CHLORIDE 0.9% 100 ML BAG ONE (10:32)
[2021-02-19] MEDS ORDERED: TRANEXAMIC ACID 1,000 MG/10 ML VIAL ONE (10:32)
[2021-02-19] MEDS ORDERED: PHENYLEPHRINE-0.9% NACL SYG 1,000 MCG/10 ML SYRINGE ONE (10:32)
[2021-02-19] MEDS ORDERED: ROPIVACAINE 5 MG/ML 30 ML VIAL ONE (10:32)
[2021-02-19] MEDS ORDERED: MIDAZOLAM 2 MG/2 ML VIAL ONE (10:32)
[2021-02-19] MEDS ORDERED: PROPOFOL 10 MG/ML 20 ML VIAL IV ONE (10:32)
[2021-02-19] MEDS ORDERED: fentaNYL (PF) 50 MCG/ML 2 ML AMP ONE (10:32)
[2021-02-19] MEDS ORDERED: ceFAZolin 1,000 MG in SODIUM CHLORIDE 0.9% 1,000 ML IRRIGATION ONE (11:05)
[2021-02-19] MEDS ORDERED: LACTATED RINGERS 1,000 ML IV ONE (12:07)
[2021-02-19] MEDS ORDERED: HYDROmorphone 0.5 MG/0.5 ML SYRINGE IVP PRN ×2 (12:24)
[2021-02-19] MEDS ORDERED: NALOXONE 0.4 MG/ML 1 ML VIAL IV PRN (12:24)
[2021-02-19] MEDS ORDERED: HYDROcodone/APAP 5-325MG 1 EACH TAB PO PRN (12:24)
--- NOTE | 2021-02-19 12:51 | P.OP ---
Date of Procedure: 02/19/21 Preoperative Diagnosis: Left knee severe osteoarthrosis Postoperative Diagnosis: Same Procedure(s) Performed: Left total knee arthroplastyposterior stabilizedcemented Implants: Depuy Attune size 5 cemented femoral component, size 4 cemented tibial component, 10 mm articular surface, 32 mm cemented patellar component. This is a posterior stabilized implant. Anesthesia: regional, spinal Surgeon: Juan Manuel Renner Pharmacy Laboratory Technician #1: Homar Singh Estimated Blood Loss (ml): 50 Pathology: other (Bone fragments) Condition: stable Disposition: PACU Indications for Procedure: The patient is a 75-year-old female who presents with progressive left knee pain secondary to osteoarthrosis despite conservative measures. A discussion of the risks and benefits of operative intervention versus continued conservative measures was made with patient. She opted to proceed with surgery. Operative risks to include infection, neurovascular injury, development of blood clots, fracture, component loosening/failure need for subsequent procedures was discussed. Informed consent was obtained. Operative Findings: As below Description of Procedure: The patient was brought to the operating room, and after induction of spinal anesthesia the left lower extremity was prepped and draped in a normal fashion. The tourniquet was inflated to 270 mm marker. A longitudinal incision extending 3 finger breaths above the superior pole of patella extending to the medial aspect the tibial tubercle was then made. The skin and subcutaneous tissues were divided sharply. Electrocautery was used for hemostasis. A medial parapatellar arthrotomy was performed. The medial soft tissues to include the superficial and deep portions of the medial collateral ligament were elevated subperiosteally. The patella was everted. A portion of the retropatellar fat pad was excised sharply. The anterior cruciate ligament was sacrificed. Blunt retractors were placed. A starting hole was made in the distal femur 1 cm anterior to the posterior cruciate ligament origin. An intramedullary femoral guide was then inserted planning on 5 valgus distal cut with 9 mm distal resection. The cutting block was pinned in place. The distal cut was then made. The posterior referencing sizing guide was utilized. I felt size 5 was most appropriate. 3 of external rotation was built into the system and cristina ified off the trans-epicondylar axis and the posterior condyles. The cutting block was pinned in place. The anterior, posterior, and chamfer cuts then made. Bone fragments were removed. The intercondylar guide was placed and the notch cut was made with a sagittal saw. The bone block was removed in one fragment. The trial component was then placed. There is good anterior to posterior and medial to lateral fit. The distal peg holes were drilled. The trial component was removed. Attention was then paid towards preparing the proximal femur. An extra medullary guide was utilized in line with the tibial shaft and second metatarsal distally. I planned on 2 mm resection from the medial compartment. The cutting block was pinned in place. The proximal tibial cut was then made. The bone was removed in one fragment. The remnants of the medial and lateral menisci were excised at the capsular junction with electrocautery. The tibia sized most appropriately at size 4. The trial femoral and tibial components were placed along with a 10 mm articular surface. I was able to obtain full flexion and extension with internal and external rotation. After several flexion and extension cycles, the tibial rotation was marked with electrocautery line with the medial one third of the tibial tubercle. Attention was then paid towards preparing the patella. A patella reamer was utilized taking stem to 14 mm of bone stock. A good flush cut was made. The patella sized most appropriately 32 mm. The peg holes were drilled. The trial components placed. I had good patellofemoral tracking with no hands technique. The trial components were then removed. The tibia was prepared in the appropriate rotation with appropriate drill and keel punch. The posterior osteophytes were removed with a curved osteotome. The flexion and extension gaps were checked and felt to be symmetric at 10 mm. I did piecrust the MCL to aid in soft tissue balancing. A trial components were then removed. The bony surfaces were prepared with pulsatile lavage and dried. The tibial component was then cemented place was fully seated. Excess cement was removed. The femoral component cemented place and was fully seated. Excess cement was removed. The trial 10 mm articular surface was placed and the knee was put in full extension. The patella component was cemented place. After the cement had sufficiently hardened, the knee was again taken through a range of motion. Again I was able to obtain full flexion and extension with varus and valgus stress. The trial 10 mm articular surface was removed and the final one inserted. This was fully seated. Care was taken to avoid any soft tissue interposition. Pulsatile lavage was again utilized. The medial parapatellar arthrotomy was closed with #2 Ethibond suture. The tourniquet was deflated with approximately 60 minutes total tourniquet time. Final hemostasis was obtained with the cautery. There was minimal bleeding therefore a deep drain was not placed. The subcutaneous tissues were reapproximated with interrupted 2-0 Vicryl sutures. The skin was reapproximated with 3-0 subcuticular strata fix suture. Skin tape and adhesive was applied. A sterile dressing was applied. The patient was awoken from sedation and transferred to recovery room in good condition. Blood loss was estimated at 50 mL. No complications were incurred. Sponge and needle counts were correct at the end of the case. Homar MOSS assisted during the major components of this case to include exposure, bone resection, implantation, and closure.
--- NOTE | 2021-02-19 13:49 | XR ---
EXAMINATION TYPE: XR knee limited LT DATE OF EXAM: 02/19/2021 COMPARISON: NONE TECHNIQUE: Two views submitted HISTORY: Post op FINDINGS: There is a prosthetic knee in near anatomic alignment. There is soft tissue edema and emphysema. IMPRESSION: 1. Postoperative change. Appears in near-anatomic alignment
[2021-02-19 14:09] LABS: Glucose,Whole Blood 118 mg/dL (75-99)
[2021-02-19 16:29] LABS: Glucose,Whole Blood 203 mg/dL (75-99)
[2021-02-19] MEDS: HYDROcodone/APAP 7.5-325MG 1 EACH TAB PO PRN (20:17)
[2021-02-19] MEDS: ENOXAPARIN 30 MG/0.3 ML SYRINGE SQ SCH (20:19)
[2021-02-19 20:39] LABS: Glucose,Whole Blood 188 mg/dL (75-99)
[2021-02-19] MEDS ORDERED: SENNOSIDES-DOCUSATE SODIUM 1 EACH TAB PO SCH (21:00)
[2021-02-20] MEDS: HYDROcodone/APAP 7.5-325MG 1 EACH TAB PO PRN ×2 (03:06→13:28)
[2021-02-20 06:50] LABS: Glucose,Whole Blood 109 mg/dL (75-99)
--- NOTE | 2021-02-20 07:13 | P.PN ---
Progress Note - Text Progress Note Date: 02/20/21 Postoperative day # 1 status post total knee arthroplasty, under spinal anesthesia, and adductor canal catheter placed for postoperative analgesia, currently at ropivacaine 0.2% 8 mL per hour and continuous infusion, visual analogue scale is 3/10, patient using oral pain medication for breakthrough pain. Assessment and plan= Acute postoperative pain, adductor canal catheter for pain control, pain is well controlled we'll continue the same management.
[2021-02-20 07:56] VITALS: BP 111/64; PULSE 65; RESP 18; TEMP 97.8
[2021-02-20] MEDS: ENOXAPARIN 30 MG/0.3 ML SYRINGE SQ SCH (08:25)
[2021-02-20 09:59] LABS: Basophils # (A) 0.02 X 10*3/uL (0.00-0.10); Basophils % (A) 0.2 %; Eosinophils # (A) 0.01 X 10*3/uL (0.04-0.35); Eosinophils % (A) 0.1 %; HCT 32.8 % (37.2-46.3); Lymphocytes # (A) 1.17 X 10*3/uL (0.90-5.00); Lymphocytes % (A) 13.1 %; MCH 32.2 pg (27.0-32.0); MCHC 33.5 g/dL (32.0-37.0); MCV 95.9 fL (80.0-97.0); Mean Platelet Volume 10.9 fL (9.5-12.2); Monocytes # (A) 0.98 X 10*3/uL (0.20-1.00); Neutrophils # (A) 6.72 X 10*3/uL (1.80-7.70); Neutrophils % (A) 75.2 %; Platelet Count 196 X 10*3/uL (140-440); RBC 3.42 X 10*6/uL (4.10-5.20); RDW 12.8 % (11.5-14.5); WBC 8.94 X 10*3/uL (4.50-10.00)
--- NOTE | 2021-02-20 10:48 | P.DS ---
Providers Date of admission: 02/19/2021 Expected date of discharge: 02/20/21 Attending physician: Juan Manuel Renner Consults: 02/19/21 17:10 Consult Physician Routine Consulting Provider: Oracio Muniz Reason/Comments: medical management Do you want consulting provider notified?: Yes Primary care physician: Oracio Muniz Hospital Course: Date of admission: 02/19/2021 Date of discharge: 02/20/2021 Admission diagnosis: Left knee osteoarthritis Discharge diagnosis: Same Attending physician: Dr. Renner Surgical procedures: Left total knee arthroplasty Brief history: Patient is a 75-year-old female with a history of progressive primary left knee osteoarthritis. At this point patient has failed conservative treatment measures and has opted to proceed with a elective left total knee arthroplasty. Hospital course: Details of patient's surgery can be found in operative report. Patient tolerated the procedure well and was subsequently transported to orthopedic floor. Patient's orthopeidc and medical care was provided daily. Patient had daily laboratory tests performed for evaluation of overall blood counts. Patient had daily physical therapy to include strengthening range of motion as well as education with walker ambulation. Patient was treated with Lovenox for their postoperative DVT prophylaxis during their inpatient stay. Patient was noted to have a relatively uneventful postoperative course. Patient reported satisfactory pain control with oral pain medications by postoperative day 1. Patient showed satisfactory progress with physical therapy. Patient moved steadily through the program and had no difficulty meeting the goals by postoperative day 1. Given patient's otherwise satisfactory course and having met physical therapy goals, plan is to discharge patient home on postoperative day 1. Discharge condition/disposition: Patient will be discharged home in stable condition. Discharge medications: Instructions are given on resumption of patient's normal daily medications per primary care recommendation, in addition patient will be prescribed [place] 7.5 mg/325 mg; senna; to resume Plavix 75 mg QD once at home. Discharge instructions: 1. Wound care and infection precautions, keep incision dry and covered while showering, no lotions, creams, moisturizers. No soaking, tubs, pools, hottubs. Do not scrub over the incision. 2. Weight-bear as tolerated with walker / cane until follow-up. 3. Ice and elevate when necessary. Do not exceed 20 minutes per hour with ice pack. 4. Utilize compression sleeve until seen at first follow up appointment. 5. Visiting nursing care. 6. Home physical therapy including home CPM. 7. Pain meds and anticoagulants per prescription. 8. Pain medication has potential to cause constipation. Increase oral fluid and fiber intake. Contact primary care provider if you have not had a bowel movement within 48 hours after discharge 9. No anti-inflammatory medication until discussed at first post operative visit, this including Motrin, Aleve, Mobic, Diclofenac. 10. Follow up in office at 2 weeks postop with Luis Sterling PA-C / Homar Singh PA-C 11. Follow up with your primary care doctor 7-10 days after discharge. 12. Contact [facility] with any questions, . Please resume Plavix 75 mg once at home for DVT prophylaxis Assessment: Left knee osteoarthritis Procedures: Left total knee arthroplasty Patient Condition at Discharge: Good Plan - Discharge Summary Discharge Rx Participant: No New Discharge Prescriptions: New Sennosides-Docusate Sodium [Senokot-S] 2 each PO HS tab Clopidogrel [Plavix] 75 mg PO DAILY #30 tablet HYDROcodone/APAP 7.5-325MG [[place] 7.5] 1 each PO Q6HR PRN #32 tab PRN Reason: Pain Continue amLODIPine BESYLATE [Amlodipine Besylate] 5 mg PO QAM Multivitamins, Thera [Multivitamin (formulary)] 1 tab PO DAILY hydroCHLOROthiazide 25 mg PO QAM Magnesium Oxide [Mag-Ox] 250 mg PO DAILY Cholecalciferol (Vitamin D3) [Vitamin D3 (125 MCG = 5,000 IU)] 125 mcg PO DAILY Pantoprazole [Protonix] 40 mg PO BID metFORMIN HCL 500 mg PO DAILY Ubidecarenone [Co Q-10] 100 mg PO DAILY Ferrous Sulfate [Iron] 325 mg PO DAILY Turmeric Root Extract [Turmeric] 500 mg PO DAILY Rosuvastatin [Crestor] 20 mg PO DAILY Calcium Carbonate [Calcium] 1,200 mg PO DAILY Aspirin [Adult Low Dose Aspirin EC] 81 mg PO HS Discharge Medication List amLODIPine BESYLATE [Amlodipine Besylate] 5 mg PO QAM 06/19/14 [History] Multivitamins, Thera [Multivitamin (formulary)] 1 tab PO DAILY 02/22/18 [History] hydroCHLOROthiazide 25 mg PO QAM 02/22/18 [History] Magnesium Oxide [Mag-Ox] 250 mg PO DAILY 12/06/19 [History] Aspirin [Adult Low Dose Aspirin EC] 81 mg PO HS 02/14/21 [History] Calcium Carbonate [Calcium] 1,200 mg PO DAILY 02/14/21 [History] Cholecalciferol (Vitamin D3) [Vitamin D3 (125 MCG = 5,000 IU)] 125 mcg PO DAILY 02/14/21 [History] Ferrous Sulfate [Iron] 325 mg PO DAILY 02/14/21 [History] Pantoprazole [Protonix] 40 mg PO BID 02/14/21 [History] Rosuvastatin [Crestor] 20 mg PO DAILY 02/14/21 [History] Turmeric Root Extract [Turmeric] 500 mg PO DAILY 02/14/21 [History] Ubidecarenone [Co Q-10] 100 mg PO DAILY 02/14/21 [History] metFORMIN HCL 500 mg PO DAILY 02/14/21 [History] Clopidogrel [Plavix] 75 mg PO DAILY #30 tablet 02/20/21 [Rx] HYDROcodone/APAP 7.5-325MG [[place] 7.5] 1 each PO Q6HR PRN #32 tab 02/20/21 [Rx] Sennosides-Docusate Sodium [Senokot-S] 2 each PO HS tab 02/20/21 [Rx] Follow up Appointment(s)/Referral(s): [facility], [NON-STAFF] - ([facility] will call you to arrange the time for your first home physical therapy and nurse visit. ) [facility] [NON-STAFF] - (*Please call [facility] once home to arrange delivery of the Continous Passive Motion (CPM) machine. ) Oracio Muniz MD [Primary Care Provider] - 1 Week Homar Singh PAC [PHYSICIAN NET FISHER] - 2 Weeks Activity/Diet/Wound Care/Special Instructions: Hold hydrochlorothiazide until systolic BP >120 Orthopedic Discharge Instructions: 1. Wound care and infection precautions, keep incision dry and covered while showering, no lotions, creams, moisturizers. No soaking, pools, hot tubs. Do not scrub over incision. 2. Weight-bear as tolerated with walker / cane until follow-up. 3. Ice and elevate when necessary. Do not exceed 20 minutes per hour with ice pack. 4. Utilize compression sleeve until seen at first follow up appointment. 5. Pain meds and anticoagulants per prescription. 6. Pain medication has potential to cause constipation. Increase oral fluid and fiber intake. Contact primary care provider if you have not had a bowel movement within 48 hours after discharge. 7. No anti-inflammatory medication until discussed at first post operative visit, this including Motrin, Aleve, Mobic, Diclofenac. 8. Follow up in office at 2 weeks postop with Luis Sterling PA-C / Homar Singh PA-C 9. Follow up with your primary care doctor 7-10 days after discharge. 10. Contact [facility] with any questions, . Mesh tape may removed in 5 days. While showering, cover mesh tape with Saran wrap. Please resume Plavix 75 mg daily at home for DVT prophylaxis Discharge Disposition: HOME WITH HOME HEALTH SERVICES
--- NOTE | 2021-02-20 11:01 | P.PN ---
Subjective Progress Note Date: 02/20/21 Principal diagnosis: Left knee osteoarthritis Patient seen at bedside this morning. Patient says she does have some knee pain mostly located the backside of the knee. She says she has been icing knee as well to help with pain control. Patient says physical therapy went well this morning she walked on the jonas and up-and-down a couple steps. Patient says she has not had a bowel movement yet, however, patient says she has been passing gas. Patient says she has been using incentive spirometer as well. Patient denies chest pain, fever, shortness breath, nausea, vomiting, change in vision, loss of bowel/bladder control Objective - Vital Signs Vital signs: Vital Signs Temp 97.8 F 02/20/21 07:53 Pulse 65 02/20/21 07:53 Resp 18 02/20/21 07:53 BP 111/64 02/20/21 07:53 Pulse Ox 95 02/20/21 07:53 Intake & Output 02/19/21 02/20/21 02/20/21 18:59 06:59 18:59 Intake Total 1101 Output Total 50 Balance 1051 Weight 84.1 kg Intake: IV 1101 Output: Estimated Blood Loss 50 Other: # Voids 1 2 - Exam Left knee: Incision is clean, dry, and intact. The exofin fusion tape is in good condition . There is minimal soft tissue swelling and ecchymosis surrounding the medial and lateral aspects of the incision. Calf is soft, no tenderness with palpation. Plantar flexion, dorsiflexion, EHL, FHL are intact. Sensory exam to light touch throughout the extremity is intact, dorsal pedis pulses 2+. - Labs CBC & Chem 7: 02/20/21 05:28 Labs: Abnormal Lab Results - Last 24 Hours (Table) 02/19/21 02/19/21 02/19/21 Range/Units 14:06 16:27 20:38 RBC (4.10-5.20) X 10*6/uL Hgb (12.0-15.0) g/dL Hct (37.2-46.3) % MCH (27.0-32.0) pg Eosinophils # (0.04-0.35) X 10*3/uL POC Glucose (mg/dL) 118 H 203 H 188 H (75-99) mg/dL 02/20/21 02/20/21 Range/Units 05:28 06:49 RBC 3.42 L (4.10-5.20) X 10*6/uL Hgb 11.0 L (12.0-15.0) g/dL Hct 32.8 L (37.2-46.3) % MCH 32.2 H (27.0-32.0) pg Eosinophils # 0.01 L (0.04-0.35) X 10*3/uL POC Glucose (mg/dL) 109 H (75-99) mg/dL Assessment and Plan Assessment: Left knee osteoarthritis Plan: 1. Left knee osteoarthritis - left total knee arthroplasty performed yesterday, 02/19/2021. Patient doing well this morning. Plan discharge home today 2. Pain management - going home with [place] 7.5 mg/325 mg 3. Appreciate medical management 4. DVT prophylaxis - Lovenox in hospital; to resume Plavix 75 mg daily once at home 5. GI prophylaxis - senna 6. PT/OT - weightbearing as tolerated walker for assistance 7. Discharge planning - planning discharge home today with health services Time with Patient: Less than 30
--- NOTE | 2021-02-20 12:29 | P.CONS ---
History of Present Illness - Reason for Consult Consult date: 02/20/21 medical management - History of Present Illness HISTORY OF PRESENT ILLNESS This is a 75-year-old female patient of Dr. Muniz with past medical history of hypertension, hyperlipidemia, diabetes mellitus type 2, coronary artery disease status post PCI and stent 2 in February 2020 at [place], gastroesophageal reflux disease, anemia of chronic disease, osteoarthritis. Patient has been brought into the hospital under the care of Dr. Renner status post left total knee arthroplasty. Patient is postop day #1. She denies having any chest pain or shortness of breath. She is using incentive spirometer reaching 1500 ML's. She denies any abdominal pain, nausea or vomiting. Her last bowel movement was on Thursday. She is anticipating discharge home today. Medication reconciliation has been reviewed. REVIEW OF SYSTEMS Constitutional: No fever, no chills, no night sweats. No weight change. No weakness, fatigue or lethargy. No daytime sleepiness. EENT: No headache. No blurred vision or double vision, no loss of vision. No loss of Hearing, no ringing in the ears, no dizziness. No nasal drainage or congestion. No epistaxis. No sore throat. Lungs: No shortness of breath, cough, no sputum production. No wheezing. Cardiovascular: No chest pain, no lower extremity edema. No palpitations. No paroxysmal nocturnal dyspnea. No orthopnea. No lightheadedness or dizziness. No syncopal episodes. Abdominal: No abdominal pain. No nausea, vomiting. No diarrhea. No constipation. No bloody or tarry stools.. No loss of appetite. Genitourinary: No dysuria, increased frequency, urgency. No urinary retention. Musculoskeletal: No myalgias. No muscle weakness, no gait dysfunction, no frequent falls. No back pain. No neck pain. Mild left knee discomfort. Integumentary: No wounds, no lesions. No rash or pruritus. No unusual bruising. No change in hair or nails. Neurologic: No aphasia. No facial droop. No change in mentation. No head injury. No headache. No paralysis. No paresthesia. Psychiatric: No depression. No anxiety. No mood swings. Endocrine: No abnormal blood sugars. No weight change. No excessive sweating or thirst. No cold intolerance. SOCIAL HISTORY Patient has been a lifelong nonsmoker, she drinks occasional glass of wine, no marijuana use or illicit drug use. She lives at home with her who is a childs. FAMILY HISTORY Father at age of 72 from myocardial infarction. Mother at the age of 76 from hepatitis C after blood transfusion. One brother who from motor vehicle accident, her other brother 78-year-old lives in [place] he developed to have a brain aneurysm and CVA. Patient has 2 daughters no major medical problems. Patient has one son no major medical problems. PHYSICAL EXAMINATION Gen: This is a 75-year-old female. Patient is resting in recliner appears to be comfortable and in no acute distress. HEENT: Head is atraumatic, normocephalic. Pupils equal, round. Sclerae is anicteric. NECK: Supple. No JVD. No lymphadenopathy. No thyromegaly. LUNGS: Clear to auscultation. No wheezes or rhonchi. No intercostal retractions. HEART: Regular rate and rhythm. No murmur. ABDOMEN: Soft. Bowel sounds are present. No masses. No tenderness. EXTREMITIES: No pedal edema. No calf tenderness. Small dressing in place to the left knee with no breakthrough bleeding or drainage NEUROLOGICAL: Patient is awake, alert and oriented x3. Cranial nerves 2 through 12 are grossly intact. ASSESSMENT AND PLAN 1. Osteoarthritis status post left total knee arthroplasty, postop day #1. Patient has had no postop comp occasions. Continue incentive spirometry, continue Plavix. 2. Hypertension. Patient instructed to hold hydrochlorothiazide until systolic blood pressure greater than 120, okay to resume amlodipine 5 mg daily. 3. Hyperlipidemia continue Crestor 20 mg daily. 4. Diabetes mellitus type 2. Continue metformin 500 mg daily. 5. History of coronary artery disease status post PCI and stent 2 in February 2020, stable. No complaints of chest pain. Continue Plavix 6. Gastroesophageal reflux disease. Continue Protonix 40 mg twice daily. 7. Anemia of chronic disease. Continue ferrous sulfate. DISCHARGE PLAN Home with [facility]. Impression and plan of care have been directed as dictated by the signing physician. Tricia Gonzalez nurse practitioner acting as scribe for signing physician. Past Medical History Past Medical History: Coronary Artery Disease (CAD), Diabetes Mellitus, GERD/Reflux, GI Bleed, Hyperlipidemia, Hypertension, Osteoarthritis (OA) Additional Past Medical History / Comment(s): Cystocele, urinary incontinence, hx anemia, SOB, hiatal hernia. History of Any Multi-Drug Resistant Organisms: None Reported Past Surgical History: Adenoidectomy, Appendectomy, Heart Catheterization With Stent, Hysterectomy, Joint Replacement, Tonsillectomy, Tubal Ligation Additional Past Surgical History / Comment(s): Right hip replacement X3, right knee replacement, surgery for shattered pelvis, retocele repair, bilateral salpingoophorectomy with hysterectomy, 2 cardiac stents. Past Anesthesia/Blood Transfusion Reactions: Postoperative Nausea & Vomiting (PONV) Additional Past Anesthesia/Blood Transfusion Reaction / Comm: "I could not talk for several days after anesthesia", X1, difficult IV start. Date of Last Stent Placement:: 02/2020 Smoking Status: Never smoker - Past Family History Father Family Medical History: Myocardial Infarction ([place]) Mother Family Medical History: Liver Disease (Mother at the age of 76 from hepatitis C after blood transfusion.) Brother(s) Family Medical History: No Reported History (One brother who from motor v ehicle accident, her other brother 78-year-old lives in [place] he developed to have a brain aneurysm and CVA.) Daughter(s) Family Medical History: No Reported History (Patient has 2 daughters no major medical problems.) Son(s) Family Medical History: No Reported History (Patient has one son no major medical problems.) Medications and Allergies Home Medications Medication Instructions Recorded Confirmed Type amLODIPine BESYLATE [Amlodipine 5 mg PO QAM 06/19/14 02/19/21 History Besylate] Multivitamins, Thera [Multivitamin 1 tab PO DAILY 02/22/18 02/19/21 History (formulary)] hydroCHLOROthiazide 25 mg PO QAM 02/22/18 02/19/21 History Magnesium Oxide [Mag-Ox] 250 mg PO DAILY 12/06/19 02/19/21 History Aspirin [Adult Low Dose Aspirin EC] 81 mg PO HS 02/14/21 02/19/21 History Calcium Carbonate [Calcium] 1,200 mg PO DAILY 02/14/21 02/19/21 History Cholecalciferol (Vitamin D3) 125 mcg PO DAILY 02/14/21 02/19/21 History [Vitamin D3 (125 MCG = 5,000 IU)] Ferrous Sulfate [Iron] 325 mg PO DAILY 02/14/21 02/19/21 History Pantoprazole [Protonix] 40 mg PO BID 02/14/21 02/19/21 History Rosuvastatin [Crestor] 20 mg PO DAILY 02/14/21 02/19/21 History Turmeric Root Extract [Turmeric] 500 mg PO DAILY 02/14/21 02/19/21 History Ubidecarenone [Co Q-10] 100 mg PO DAILY 02/14/21 02/19/21 History metFORMIN HCL 500 mg PO DAILY 02/14/21 02/19/21 History Clopidogrel [Plavix] 75 mg PO DAILY #30 tablet 02/20/21 Rx HYDROcodone/APAP 7.5-325MG [[place] 1 each PO Q6HR PRN #32 tab 02/20/21 Rx 7.5] Sennosides-Docusate Sodium 2 each PO HS tab 02/20/21 Rx [Senokot-S] Allergies Allergy/AdvReac Type Severity Reaction Status Date / Time ceftriaxone [From [facility]] AdvReac Nausea & Verified 02/14/21 14:12 Vomiting codeine AdvReac Nausea & Verified 02/14/21 14:12 Vomiting Physical Exam Vitals: Vital Signs Temp Pulse Pulse Resp BP Pulse Ox 02/20/21 07:53 97.8 F 65 18 111/64 95 02/20/21 03:04 118/70 02/20/21 01:56 98.0 F 79 15 98/62 95 02/19/21 19:04 97.9 F 73 14 102/62 94 L 02/19/21 15:14 97.5 F L 62 18 134/72 96 02/19/21 14:45 80 14 144/70 99 02/19/21 14:00 71 16 143/79 97 02/19/21 13:45 62 14 154/74 100 02/19/21 13:30 77 16 167/73 97 02/19/21 13:15 67 16 121/64 97 02/19/21 13:00 65 14 118/65 97 02/19/21 12:47 98.6 F 64 14 115/62 96 02/19/21 10:12 67 15 157/67 98 Intake and Output 02/19/21 02/20/21 02/20/21 22:59 06:59 14:59 Other: # Voids 2 Results CBC & Chem 7: 02/20/21 05:28 Labs: Abnormal Lab Results - Last 24 Hours (Table) 02/19/21 02/19/21 02/19/21 Range/Units 09:29 14:06 16:27 POC Glucose (mg/dL) 111 H 118 H 203 H (75-99) mg/dL 02/19/21 02/20/21 Range/Units 20:38 06:49 POC Glucose (mg/dL) 188 H 109 H (75-99) mg/dL
== END 2021-02-20 13:41 | disposition home health service (06) ==
LOC: OR 08:43 → 4SSUR 14:51 → OR 02-20 13:41
PROVIDERS: ATTEND Orthopaedic Surgery
DX: M17.12 Unilateral primary osteoarthritis, left knee (principal); E11.9 Type 2 diabetes mellitus without complications; I10 Essential (primary) hypertension; Z98.1 Arthrodesis status; Z79.899 Other long term (current) drug therapy; Z79.82 Long term (current) use of aspirin; Z79.02 Long term (current) use of antithrombotics/antiplatelets; I25.10 Atherosclerotic heart disease of native coronary artery without angina pectoris; D50.9 Iron deficiency anemia, unspecified; E78.5 Hyperlipidemia, unspecified; K21.9 Gastro-esophageal reflux disease without esophagitis; R32 Unspecified urinary incontinence; Z88.1 Allergy status to other antibiotic agents; Z88.5 Allergy status to narcotic agent; Z79.84 Long term (current) use of oral hypoglycemic drugs; Z20.822 Contact with and (suspected) exposure to COVID-19
CPT/HCPCS: 97161; 64999; 64448; 76942; 85025; 88300; 87635; 73560; 27447; C1713 ×2; C1776; J2250; J1100; J0690 ×3; J2405; J3010; J1650 ×2; J2795 ×2; J2370; J2704; J1170

== ENCOUNTER → 2021-03-14 | Outpatient (CLI) | payer MEDICARE, BC ==
--- NOTE | 2021-03-14 13:46 | US ---
EXAMINATION TYPE: US venous doppler duplex LE LT DATE OF EXAM: 03/14/2021 1:19 PM COMPARISON: NONE CLINICAL HISTORY: 75-year-old female R60.9 edema. LEFT total knee replacement 3 weeks ago. Pain and e oliver left leg SIDE PERFORMED: left TECHNIQUE: The lower extremity deep venous system is examined utilizing real time linear array sonog janice with graded compression, doppler sonography and color-flow sonography. FINDINGS: VESSELS IMAGED: Common Femoral Vein Deep Femoral Vein Greater Saphenous Vein * Femoral Vein Popliteal Vein Small Saphenous Vein * Proximal Calf Veins (* superficial vessels) Left Leg: No evidence of DVT as visualized. Patient unable to tolerate compression at lower femoral vein IMPRESSION: We note that the patient is unable to tolerate compression at the level of the lower femoral vein. Ho wever, no evidence for DVT within the left lower extremity imaged from the groin to the upper calf.
== END | disposition home or self-care (01) ==
LOC: RADUSWWP 12:57
PROVIDERS: ATTEND Internal Medicine Geriatric Medicine
DX: R60.0 Localized edema (principal); Z96.652 Presence of left artificial knee joint

== ENCOUNTER → 2021-05-03 | Outpatient (CLI) | payer MEDICARE, BC ==
--- NOTE | 2021-05-06 12:40 | MM ---
Reason for exam: screening (asymptomatic). Last mammogram was performed 1 year and 2 months ago. History: Patient is postmenopausal. Family history of breast cancer in maternal aunt. Stereotactic core biopsy of the right breast, June 19, 2000. Core biopsy of the right breast. Took hormonal contraceptives for 20 years. Physical Findings: A clinical breast exam by your physician is recommended on an annual basis and results should be correlated with mammographic findings. MG 3D Screening Mammo W/Cad Bilateral CC and MLO view(s) were taken. Prior study comparison: March 02, 2020, bilateral MG 3d screening mammo w/cad. October 18, 2018, bilateral MG 3d screening mammo w/cad. The breast tissue is heterogeneously dense. This may lower the sensitivity of mammography. Stable benign calcifications. There is no discrete abnormality. No significant changes when compared with prior studies. ASSESSMENT: Benign, BI-RAD 2 RECOMMENDATION: Routine screening mammogram of both breasts in 1 year.
== END | disposition home or self-care (01) ==
LOC: RADMAMWWP 13:13
PROVIDERS: ATTEND Internal Medicine Geriatric Medicine
DX: Z12.31 Encounter for screening mammogram for malignant neoplasm of breast (principal)
CPT/HCPCS: 77063; 77067

== ENCOUNTER → 2021-09-19 | Outpatient (CLI) | payer MEDICARE, BC ==
[2021-09-19 16:49] LABS: Basophils # (A) 0.1 k/uL (0-0.2); Basophils % (A) 1 %; Eosinophils # (A) 0.2 k/uL (0-0.7); Eosinophils % (A) 3 %; HCT 45.9 % (34.0-46.0); HGB 14.5 gm/dL (11.4-16.0); Lymphocytes # (A) 1.3 k/uL (1.0-4.8); Lymphocytes % (A) 20 %; MCH 30.7 pg (25.0-35.0); MCHC 31.5 g/dL (31.0-37.0); MCV 97.6 fL (80.0-100.0); Mean Platelet Volume 7.8; Monocytes # (A) 0.6 k/uL (0-1.0); Monocytes % (A) 9 %; Neutrophils # (A) 4.2 k/uL (1.3-7.7); Neutrophils % (A) 65 %; Platelet Count 209 k/uL (150-450); RBC 4.71 m/uL (3.80-5.40); RDW 12.7 % (11.5-15.5); WBC 6.5 k/uL (3.8-10.6)
[2021-09-19 17:01] LABS: ALT 24 U/L (4-34); AST 25 U/L (14-36); African American GFR (CKD) 79 (>60 ml/min/1.73 sqM); Albumin 4.6 g/dL (3.5-5.0); Albumin/Globulin Ratio 1.5; Alkaline Phosphatase 58 U/L (38-126); Anion Gap 7 mmol/L; Blood Urea Nitrogen 17 mg/dL (7-17); Calcium 9.4 mg/dL (8.4-10.2); Carbon Dioxide 34 mmol/L (22-30); Chloride 102 mmol/L (98-107); Creatine Kinase 58 U/L (30-135); Globulin 3.1 g/dL; Glucose 115 mg/dL (74-99); Non-African American GFR(CKD) 68 (>60 ml/min/1.73 sqM); Potassium 4.2 mmol/L (3.5-5.1); Sodium 143 mmol/L (137-145); Total Bilirubin 0.5 mg/dL (0.2-1.3); Total Protein 7.7 g/dL (6.3-8.2)
== END | disposition home or self-care (01) ==
LOC: LABWHC1 15:36
PROVIDERS: ATTEND Internal Medicine Geriatric Medicine
DX: I26.99 Other pulmonary embolism without acute cor pulmonale (principal); R07.9 Chest pain, unspecified
CPT/HCPCS: 36415; 80053; 82550; 84443; 84484; 85025; 85379

== ENCOUNTER → 2021-09-19 | Outpatient (CLI) | payer MEDICARE, BC ==
--- NOTE | 2021-09-20 08:24 | XR ---
EXAMINATION TYPE: XR chest 2V DATE OF EXAM: 09/19/2021 COMPARISON: 10/28/2016 TECHNIQUE: PA and lateral views submitted. HISTORY: Pleurisy FINDINGS: The lungs are clear and there is no pneumothorax, pleural effusion, or focal pneumonia. A large hia stanley hernia. Hypertrophic and degenerative change of the spine. No overt failure. IMPRESSION: 1. No acute process. 2. Large hiatal hernia.
== END | disposition home or self-care (01) ==
LOC: RADXRMAIN 16:35
PROVIDERS: ATTEND Internal Medicine Geriatric Medicine
DX: K44.9 Diaphragmatic hernia without obstruction or gangrene (principal)
CPT/HCPCS: 71046

== ENCOUNTER → 2021-09-20 | Outpatient (CLI) | payer MEDICARE, BC ==
--- NOTE | 2021-09-20 11:02 | CT ---
EXAMINATION TYPE: CT angio chest DATE OF EXAM: 09/20/2021 COMPARISON: Chest x-ray from yesterday HISTORY: PE, shortness of breath CT DLP: 451 mGycm. Automated Exposure Control for Dose Reduction was Utilized. CONTRAST: CTA scan of the thorax is performed without and with IV Contrast, patient injected with 100 mL of Iso brittany 370, pulmonary embolism protocol. MIP Images are created on CT scanner and reviewed. FINDINGS: LUNGS: Mild medial bibasilar linear scarring and/or atelectasis. No suspicious focal consolidation. There is no pleural effusion or pneumothorax seen. The tracheobronchial tree is patent. MEDIASTINUM: There is satisfactory enhancement of the pulmonary artery and its branches, there is no CT evidence for pulmonary embolism. There are no greater than 1 cm hilar or mediastinal lymph nodes. No cardiomegaly or pericardial effusion is seen. There is coronary artery calcification and/or amara nts in the LAD distribution. There is large size fixed hiatal hernia with abnormal twisting of the st omach. Satisfactory enhancement of the thoracic aorta without aneurysm or dissection OTHER: Exaggerated thoracic kyphosis with moderate multilevel spurring. Slight scoliotic curvature on coronal images. IMPRESSION: No CT evidence for acute pulmonary embolism. No suspicious acute pulmonary process.
== END | disposition home or self-care (01) ==
LOC: RADCTMAIN 09:27
PROVIDERS: ATTEND Internal Medicine Geriatric Medicine
DX: I26.99 Other pulmonary embolism without acute cor pulmonale (principal)
CPT/HCPCS: 71275; Q9967

== ENCOUNTER → 2022-06-18 | Outpatient (CLI) | payer MEDICARE, BC ==
--- NOTE | 2022-06-18 14:18 | BD ---
EXAMINATION TYPE: Axial Bone Density DATE OF EXAM: 06/18/2022 COMPARISON: NONE CLINICAL HISTORY: 76 years year old Female. ICD-10 CODE: M81.0 OSTEOPOROSIS Height: 61 Weight: 195.3 FRAX RISK QUESTIONS: Alcohol (3 or more units per day): no Family History (Parent hip fracture): no Glucocorticoids (More than 3mos): no (Ex: prednisone, prednisolone, methylprednisolone, dexamethasone, and hydrocortisone). History of Fracture in Adulthood: no Secondary Osteoporosis: 1. Type 1 Diabetes: no 2. Hyperthyroidism: no 3. Menopause before 45: no 4. Malnutrition: no 5. Chronic liver disease: no Rheumatoid Arthritis: no Current Tobacco Use: no RISK FACTORS HISTORY OF: Surgery to Spine/Hip(right/left)/Wrist (right/left): right hip When: 2014 Family History of Osteoporosis: no Active: no Diet low in dairy products/other sources of calcium: yes Postmenopausal woman: yes Lost more than 2 inches in height since high school: yes MEDICATIONS: Additional History: EXAM MEASUREMENTS: Bone mineral densitometry was performed using the qualifyor System. Bone mineral density as measured about the Lumbar spine is: ----- L1-L4(G/cm2): 1.187 T Score Values are as follows: ----- L1: -0.6 ----- L2: -0.2 ----- L3: 0.5 ----- L4: 0.2 ----- L1-L4: 0.1 Bone mineral density has: decreased -5.4 % since study of: 10.12.2017 Bone mineral density about the L hip (g/cm2): 0.739 T Score values are as follows: -----L Neck: -2.2 -----L Total: -1.4 Bone mineral density has: decreased -19.0 % since study of: 10.12.2018 FRAX%s: The graph provided illustrates a 13.7% chance for a major osteoporotic fx and a 3.7% chance f or the hips probability for fx in 10 years time. IMPRESSION: Osteopenia (T Score between -2.5 and -1). There is slightly increased risk of fracture and the patient may be considered for treatment. Re-Screen 2-5 years. NOTE: T-SCORE=SD OF THE YOUNG ADULT MEAN.
--- NOTE | 2022-06-19 08:50 | MM ---
Reason for Exam: Screening (asymptomatic). Last mammogram was performed 1 year(s) and 2 month(s) ago. Patient History: Menarche at age 10. First Full-Term at age 20. Left ovary removed at age 63. Right ovary removed at age 63. Hysterectomy at age 63. Postmenopausal. Patient has history of breast feeding. Patient used Hormonal Contraceptives for 20 years. Core Biopsy on the Right side. 06/19/2000, Stereotactic Core Biopsy on the Right side. Maternal aunt had breast cancer, age 65. Risk Values: Mackenzie 5 year model risk: 2.6%. NCI Lifetime model risk: 5.3%. Prior Study Comparison: 10/18/2018 Bilateral Screening Mammogram, [facility]. 03/02/2020 Bilateral Screening Mammogram, [facility]. 05/03/2021 Bilateral Screening Mammogram, [facility]. Tissue Density: There are scattered fibroglandular densities. Findings: Analyzed By CAD. There are scattered and loosely grouped benign-appearing round calcifications bilaterally redemonstrated. There is biopsy clip in the right breast adjacent to stable circumscribed 10 mm mass. Benign-appearing bilateral axillary lymph nodes are redemonstrated. There is no suspicious new group of microcalcifications or new suspicious mass in either breast. Overall Assessment: Benign, BI-RAD 2 Management: Screening Mammogram of both breasts in 1 year. A clinical breast exam by your physician is recommended on an annual basis and results should be correlated with mammographic findings. Electronically signed and approved by: Gautam Beard M.D.
== END | disposition home or self-care (01) ==
LOC: RADMAMWWP 08:06
PROVIDERS: ATTEND Internal Medicine Geriatric Medicine
DX: Z12.31 Encounter for screening mammogram for malignant neoplasm of breast (principal); M85.89 Other specified disorders of bone density and structure, multiple sites; M81.0 Age-related osteoporosis without current pathological fracture; Z78.0 Asymptomatic menopausal state; Z80.3 Family history of malignant neoplasm of breast; Z98.890 Other specified postprocedural states
CPT/HCPCS: 77063; 77067; 77080

== ENCOUNTER → 2022-10-28 | Outpatient (CLI) | payer MEDICARE, BC ==
--- NOTE | 2022-10-28 16:15 | XR ---
EXAMINATION TYPE: XR cervical spine comp DATE OF EXAM: 10/28/2022 2:55 PM INDICATION: Patient age:Female; 76 years old; Reason for study: M54.2 CERVICALGIA; COMPARISON: None TECHNIQUE: The cervical spine was imaged in frontal, lateral, odontoid and bilateral oblique. FINDINGS: The osseous structures show normal alignment without evidence of an acute fracture. There are osteoph ytes noted throughout the cervical spine on the anterior and lateral aspects of the vertebral bodies. The intervertebral disk spaces are narrowed at multiple levels. Pedicles are intact. Soft tissues a re within normal limits. The odontoid appears intact. Neural foraminal stenosis of at least moderate to severe severity throughout the lower cervical spine from C4 through C7. IMPRESSION: 1. No fracture or dislocation. 2. Moderate degenerative disc disease changes of the cervical spine. Neural foraminal stenosis of at least moderate to severe severity throughout the lower cervical spine from C4 through C7.
== END | disposition home or self-care (01) ==
LOC: RADXRMAIN 14:37
PROVIDERS: ATTEND Nurse Practitioner Family
DX: M50.321 Other cervical disc degeneration at C4-C5 level (principal); M48.02 Spinal stenosis, cervical region
CPT/HCPCS: 72050

== ENCOUNTER → 2023-07-09 | Outpatient (CLI) | payer MEDICARE, BC ==
--- NOTE | 2023-07-10 08:42 | MM ---
Reason for Exam: Screening (asymptomatic). Last mammogram was performed 1 year(s) and 1 month(s) ago. Patient History: Menarche at age 10. First Full-Term at age 20. Left ovary removed at age 63. Right ovary removed at age 63. Hysterectomy at age 63. Postmenopausal. Patient has history of breast feeding. Patient used Hormonal Contraceptives for 20 years. Core Biopsy on the Right side. 06/19/2000, Stereotactic Core Biopsy on the Right side. Maternal aunt had breast cancer, age 65. Risk Values: Mackenzie 5 year model risk: 2.6%. NCI Lifetime model risk: 4.9%. Prior Study Comparison: 03/02/2020 Bilateral Screening Mammogram, [facility]. 05/03/2021 Bilateral Screening Mammogram, [facility]. 06/18/2022 Bilateral MG 3D screening mammo w/cad, [facility]. Tissue Density: The breast tissue is heterogeneously dense. This may lower the sensitivity of mammography. Findings: Analyzed By CAD. There is no suspicious group of microcalcifications or new suspicious mass in either breast. Overall Assessment: Benign, BI-RAD 2 Management: Screening Mammogram of both breasts in 1 year. . Patient should continue monthly self-breast exams. A clinical breast exam by your physician is recommended on an annual basis. This exam should not preclude additional follow-up of suspicious palpable abnormalities. Note on Mackenzie scores and lifetime risk: 1. A Mackenzie score greater than 3% is considered moderate risk. If this is the case, consider specialist referral to assess eligibility for a risk reducing agent. 2. If overall lifetime risk for the development of breast cancer is 20% or higher, the patient may qualify for future screening with alternating mammogram and breast MRI. Electronically signed and approved by: Adam Hurst M.D. Radiologis
== END | disposition home or self-care (01) ==
LOC: RADMAMWWP 13:54
PROVIDERS: ATTEND Internal Medicine Geriatric Medicine
DX: Z12.31 Encounter for screening mammogram for malignant neoplasm of breast (principal); Z80.3 Family history of malignant neoplasm of breast; Z78.0 Asymptomatic menopausal state
CPT/HCPCS: 77063; 77067

== ENCOUNTER → 2023-09-21 | Outpatient (CLI) | payer MEDICARE, BC ==
--- NOTE | 2023-09-21 16:35 | XR ---
EXAMINATION TYPE: XR chest 2V DATE OF EXAM: 09/21/2023 4:18 PM CLINICAL INDICATION:Female, 77 years old with history of J069 RESPIRATORY INFECTION; [facility] COMPARISON: Chest radiographs from 09/19/2021 TECHNIQUE: XR chest 2V Frontal and lateral views of the chest. FINDINGS: Lungs/Pleura: There is no evidence of pleural effusion, focal consolidation, or pneumothorax. Pulmonary vascularity: Unremarkable. Heart/mediastinum: Cardiomediastinal silhouette is unremarkable. Musculoskeletal: No acute osseous pathology. Large hiatal hernia is present. IMPRESSION: 1. No acute cardiopulmonary disease/process. 2. Large hiatal hernia.
== END | disposition home or self-care (01) ==
LOC: RADXRMAIN 16:08
PROVIDERS: ATTEND Physician Assistant
DX: K44.9 Diaphragmatic hernia without obstruction or gangrene (principal); J06.9 Acute upper respiratory infection, unspecified
CPT/HCPCS: 71046

== ENCOUNTER → 2024-09-20 | Outpatient (CLI) | payer MEDICARE, BC ==
--- NOTE | 2024-09-20 10:38 | MM ---
Reason for Exam: Screening (asymptomatic). Last mammogram was performed 1 year(s) and 2 month(s) ago. Patient History: Menarche at age 10. First Full-Term at age 20. Left ovary removed at age 63. Right ovary removed at age 63. Hysterectomy at age 63. Postmenopausal. Patient has history of breast feeding. Patient used Hormonal Contraceptives for 20 years. Core Biopsy on the Right side. 06/19/2000, Stereotactic Core Biopsy on the Right side. Maternal aunt had breast cancer, age 65. Risk Values: Mackenzie 5 year model risk: 2.5%. NCI Lifetime model risk: 4.5%. Prior Study Comparison: 05/03/2021 Bilateral Screening Mammogram, [facility]. 06/18/2022 Bilateral MG 3D screening mammo w/cad, [facility]. 07/09/2023 Bilateral MG 3D screening mammo w/cad, [facility]. Tissue Density: The breasts are heterogeneously dense, which may obscure small masses. Findings: Analyzed By CAD. Mammotome biopsy clip in the right breast is redemonstrated. There are benign-appearing scattered round calcifications bilaterally redemonstrated. There is no suspicious group of microcalcifications or new suspicious mass in either breast. Overall Assessment: Benign, BI-RAD 2 Management: Screening Mammogram of both breasts in 1 year. . Patient should continue monthly self-breast exams. A clinical breast exam by your physician is recommended on an annual basis. This exam should not preclude additional follow-up of suspicious palpable abnormalities. Note on Mackenzie scores and lifetime risk: 1. A Mackenzie score greater than 3% is considered moderate risk. If this is the case, consider specialist referral to assess eligibility for a risk reducing agent. 2. If overall lifetime risk for the development of breast cancer is 20% or higher, the patient may qualify for future screening with alternating mammogram and breast MRI. [facility], , 09/20/2024 10:35 AM. Electronically signed and approved by: Gautam Beard M.D.
== END | disposition home or self-care (01) ==
LOC: RADMAMWWP 09:52
PROVIDERS: ATTEND Internal Medicine Geriatric Medicine
DX: Z12.31 Encounter for screening mammogram for malignant neoplasm of breast (principal); R92.333 Mammographic heterogeneous density, bilateral breasts; R92.1 Mammographic calcification found on diagnostic imaging of breast; Z78.0 Asymptomatic menopausal state; Z80.3 Family history of malignant neoplasm of breast; Z92.0 Personal history of contraception
CPT/HCPCS: 77063; 77067